=== PATIENT | female | born 1995 | race Caucasian/White ===

== ENCOUNTER 2020-08-12 07:25 | Inpatient (IN) ==
[2020-08-12] MEDS ORDERED: OXYTOCIN 30 UNITS/500 ML BAG IV PRN ×2 (08:47→08:49)
--- NOTE | 2020-08-12 09:12 | History & Physical Report ---
Date of Service August 12, 2020 Assessment & Plan (1) Encounter for supervision of normal in multigravida, antepartum: Admit to L&D. EFM/toco. Labs. COVID swab per protocol. Mckeon bulb inserted, insufflated to 35cc sterile water. Tolerated well. Start pitocin. OK for epidural when she desires. Admission and Anticipated Discharge Date Admission Date: August 12, 2020 History of Present Illness Chief Complaint: IOL Primary Care Provider: Rosy Yo 25yo @ 40 08/11, here for IOL for postdates. + movement, no reg ctx, no VB, no LOF. complicated by: GDM-non compliant with 2hr gtt *Begin monthly AC Us's @24wks Hypothyroid *Check TFTs Q4wks Chlamydia infection 1st trimester - NOREEN negative - Retest at 36 weeks--done 07/10 ak Moderate anemia - S/p Iron transfusion Obesity *growth US @ 32wks. IOL 08/12 Allergies Allergy/AdvReac Type Severity Reaction Status Date / Time Penicillins Allergy Hives Verified 08/12/20 07:46 Home Medications Medication Instructions Recorded Confirmed Type ondansetron 4 mg PO Q6H PRN #14 tab 01/06/19 08/12/20 Rx prenat.vits,ginger,[id number] 1 tab PO DAILY 05/21/20 08/12/20 History acetone (urine) test #50 ea 05/29/20 08/11/20 Rx blood sugar diagnostic #150 ea 05/29/20 08/11/20 Rx blood-glucose meter #1 ea 05/29/20 08/11/20 Rx lancets 33 gauge #150 ea 05/29/20 08/11/20 Rx levothyroxine 150 mcg tablet 150 mcg PO DAILY #90 tab 07/24/20 08/12/20 Rx levothyroxine 50 mcg capsule 100 mcg PO DAILY #90 cap 07/24/20 08/12/20 Rx loratadine 10 mg PO DAILY 07/31/20 08/12/20 History Patient History Medical History (Updated 08/12/20 @ 07:43 by Ene Cardenas, [place]) No significant past medical history Penicillin allergy Hives Surgical History (Updated 08/12/20 @ 07:44 by Ene Cardenas, [place]) H/O thyroidectomy 2019- due to Graves disease. S/P appendectomy S/P cholecystectomy S/P dilation and curettage S/P knee surgery S/P wisdom tooth extraction Family History Father Diabetes Hypertension Heart disease Cancer skin cancer Colorectal cancer Sister Breast cancer Social History (Updated 08/12/20 @ 07:46 by Ene Cardenas, RN) Smoking Status: Never smoker Hx Alcohol Use: No Preferred Language: Hungarian Beliefs That Will Affect Care: None marital status: Single marital status details: Mother Ramila Ferreira Current Living Situation: Family Current Living Situation Comment: lives with Father, and daughter, 1 dog , 1 cat, father changes litter. current occupational status: unemployed Feels Safe at Home: Yes Safety Concerns: Feels Safe At This Time Assistive Devices: None Review of Systems All systems reviewed & are unremarkable except as noted in HPI & below Physical Exam Physical Exam: T Cat 1 [place] rare SVE 2/70/-3 Constitutional: WD/WN, vitals as above Respiratory: normal respiratory effort, lungs clear to auscultation no respiratory distress Cardiovascular: Rate/Rhythm: regular rate and regular rhythm Gastrointestinal (Abdomen): Inspection/Auscultation: abdomen normal to inspection Percussion/Palpation: abdomen soft; abdomen nontender Gravid. No s/s chorio or abruption. Skin: no rashes, warm and dry Psychiatric: A+Ox3, euthymic affect Results & Data ([facility]) Vital Signs (Past 12 Hours) Vital Signs Temp Pulse Resp BP 08/12/20 07:43 37.2 C 85 18 121/65 08/12/20 07:37 37.2 C 85 18 121/65 Coding Level of Care Code None Diagnoses Encounter for supervision of normal in multigravida, antepartum Z34.80
[2020-08-12 09:50] LABS: Hematocrit (blood only) 29.4 % (37-47); Hemoglobin 8.9 g/dL (12.0-16.0); Mean Corpuscular Hemoglobin 25.5 pg (25-34); Mean Corpuscular Hgb Conc 30.3 g/dL (32-36); Mean Corpuscular Volume 84.2 fL (80-100); Mean Platelet Volume 10.4 fL (7.4-10.4); Platelet Count 189 K/uL (130-400); RDW Coefficient of Variation 17.3 % (11.5-14.5); Red Blood Count 3.49 M/uL (4.2-5.4); White Blood Count 9.66 K/uL (4.8-10.8)
[2020-08-12] MEDS: LACTATED RINGER'S 1,000 ML IV PRN ×3 (10:01→20:23)
[2020-08-12] MEDS ORDERED: fentaNYL citrate 100 MCG/2 ML VIAL ONE (11:54)
[2020-08-12] MEDS ORDERED: SODIUM CHLORIDE 0.9% INJ 10 ML VIAL ONE (11:54)
[2020-08-12] MEDS ORDERED: BUPIVACAINE 0.25% 30 ML VIAL ONE (11:54)
[2020-08-12] MEDS ORDERED: ePHEDrine sulfate 50 MG/ML AMP ONE (11:54)
[2020-08-12] MEDS ORDERED: fentaNYL 2MCG/ML ROPIVACAINE 1.25MG/ML 100 ML BAG EPI ONE (11:55)
--- NOTE | 2020-08-12 12:12 | Anesthesiology Consultation ---
Date of Service August 12, 2020 Assessment & Plan Chart Review Chart Review: Acceptable Risk for Surgery, Patient NOT seen in Pre Admission Testing and Acceptable Risk for Labor Epidural Consults Requested none ASA ASA3 Proposed Anesthesia Anesthesia Type: Labor Epidural and CSE History Height/Weight Height: 5 ft 2 in Weight: 118.841 kg Allergies Allergy/AdvReac Type Severity Reaction Status Date / Time Penicillins Allergy Hives Verified 08/12/20 07:46 Medications Home Medications Medication Instructions Recorded Confirmed Last Taken ondansetron 4 mg PO Q6H PRN #14 tab 01/06/19 08/12/20 Unknown prenat.vits,ginger,fcu-usrw-kutjc 1 tab PO DAILY 05/21/20 08/12/20 Unknown acetone (urine) test #50 ea 05/29/20 08/11/20 Unknown blood sugar diagnostic #150 ea 05/29/20 08/11/20 Unknown blood-glucose meter #1 ea 05/29/20 08/11/20 Unknown lancets 33 gauge #150 ea 05/29/20 08/11/20 Unknown levothyroxine 150 mcg tablet 150 mcg PO DAILY #90 tab 07/24/20 08/12/20 Unknown levothyroxine 50 mcg capsule 100 mcg PO DAILY #90 cap 07/24/20 08/12/20 Unknown loratadine 10 mg PO DAILY 07/31/20 08/12/20 Unknown Active Medications Generic Name Dose Route Start Last Admin Trade Name Freq PRN Reason Stop Dose Admin Lactated Ringer's 1,000 mls @ 125 mls/hr 08/12/20 08:47 08/12/20 11:43 Lr IV 08/14/20 08:46 999 mls/hr .Q8H PRN Infusion L&D Protocol Protocol Oxytocin 30 units in 500 mls @ 3 mls/hr 08/12/20 08:49 08/12/20 11:00 Pitocin IV 08/14/20 08:48 0.18 units/hr .Q24H PRN 3 mls/hr Labor Induction/Augmentation Titration Protocol 0.18 UNITS/HR Past Medical History Medical History No significant past medical history Penicillin allergy Hives Exercise / Class Metabolic Activity II 4-5 Yardwork/Stairs/Walk up hill Past Family History Family History Father Diabetes Hypertension Heart disease Cancer skin cancer Colorectal cancer Sister Breast cancer Past Surgical History Surgical History H/O thyroidectomy 2019- due to Graves disease. S/P appendectomy S/P cholecystectomy S/P dilation and curettage S/P knee surgery S/P wisdom tooth extraction Past Anesthesia History No Hx of Anesthesia Complications and No Family Hx of Anesthesia Complications History of PONV No Hx of PONV and No Hx of Motion Sickness Social History Smoking Status: Never smoker Hx Alcohol Use: No substance use type: does not use Physical Exam Vital Signs Last Vital Signs Temp 37.1 C 08/12/20 11:00 Pulse 75 08/12/20 11:06 Resp 18 08/12/20 11:00 BP 114/57 L 08/12/20 11:06 Testing Laboratory Results 08/12/20 09:19 08/12/20 09:17 POC Glucose 79
[2020-08-12] MEDS ORDERED: NALOXONE HCL 1 MG in SODIUM CHLORIDE 0.9% 1000ML 1,000 ML IV PRN (12:41)
[2020-08-12] MEDS ORDERED: NALOXONE HCL 0.4 MG/1 ML VIAL/CARP IV PRN (12:41)
[2020-08-12] MEDS ORDERED: fentaNYL 2MCG/ML ROPIVACAINE 1.25MG/ML 100 ML BAG EPI PRN (12:41)
[2020-08-12] MEDS ORDERED: ONDANSETRON INJ 2 MG/ML 2 ML VIAL IV PRN (12:41)
[2020-08-12] MEDS ORDERED: diphenhydrAMINE 50 MG/ML VIAL IV PRN (12:41)
[2020-08-12] MEDS ORDERED: PROMETHAZINE HCL 25 MG in SODIUM CHLORIDE 0.9% 50 ML IV PRN (12:41)
[2020-08-12] MEDS ORDERED: ePHEDrine sulfate 50 MG/ML AMP IV PRN (12:41)
[2020-08-12] MEDS ORDERED: ACETAMINOPHEN 500 MG TAB PO PRN (21:30)
[2020-08-12] MEDS ORDERED: ACETAMINOPHEN 500 MG TAB ONE (21:33)
--- NOTE | 2020-08-12 21:44 | Labor Progress Brief Note ---
Date of Service August 12, 2020 Subjective Feeling more pressure. Cervix is rim, with thick anterior lip. Attempted to retract anterior cervical lip over head with pushing, did not go easily. Will continue to labor. Small amount of vaginal bleeding during pushing, suspect related to cervical change. FHT cat 1 [place] Q 2 Assessment & Plan Admission and Anticipated Discharge Date Admission Date: August 12, 2020 Results & Data ([facility]) Vital Signs (Past 12 Hours) Vital Signs Temp Pulse Resp BP Pulse Ox 08/12/20 21:41 108 H 98 08/12/20 21:36 101 H 96 08/12/20 21:31 98 H 98 08/12/20 21:27 90 107/56 L 08/12/20 21:26 94 H 98 08/12/20 21:21 83 97 08/12/20 21:16 88 98 08/12/20 21:12 96 H 136/93 08/12/20 21:11 89 98 08/12/20 21:06 93 H 96 08/12/20 21:05 37.3 C 08/12/20 21:01 80 97 08/12/20 21:00 18 08/12/20 20:57 79 105/61 08/12/20 20:56 78 97 08/12/20 20:51 86 97 08/12/20 20:46 84 96 08/12/20 20:42 84 108/56 L 08/12/20 20:41 87 98 08/12/20 20:36 98 H 97 08/12/20 20:31 115 H 97 08/12/20 20:30 20 08/12/20 20:27 88 107/55 L 08/12/20 20:26 87 97 08/12/20 20:21 101 H 98 08/12/20 20:16 89 97 08/12/20 20:12 91 H 104/57 L 08/12/20 20:11 93 H 97 08/12/20 20:06 94 H 97 08/12/20 20:01 80 95 08/12/20 20:00 18 08/12/20 19:58 80 109/59 L 08/12/20 19:56 90 96 08/12/20 19:51 84 96 08/12/20 19:46 117 H 97 08/12/20 19:43 92 H 104/51 L 08/12/20 19:41 90 97 08/12/20 19:36 88 97 08/12/20 19:31 87 96 08/12/20 19:30 20 08/12/20 19:27 92 H 102/58 L 08/12/20 19:26 92 H 97 08/12/20 19:21 93 H 97 08/12/20 19:16 84 96 08/12/20 19:11 97 H 101/56 L 97 08/12/20 19:06 82 97 08/12/20 19:03 37.4 C 18 08/12/20 19:01 90 98 08/12/20 18:58 76 114/61 94 08/12/20 18:56 93 H 96 08/12/20 18:51 70 96 08/12/20 18:46 76 96 08/12/20 18:43 75 117/64 08/12/20 18:41 76 96 08/12/20 18:36 77 97 08/12/20 18:31 76 97 08/12/20 18:30 20 08/12/20 18:26 96 H 102/56 L 98 08/12/20 18:21 76 97 08/12/20 18:16 80 97 08/12/20 18:11 97 H 101/59 L 98 08/12/20 18:06 85 98 08/12/20 18:01 91 H 97 08/12/20 18:00 71 20 94 08/12/20 17:57 80 96 08/12/20 17:56 70 107/53 L 08/12/20 17:55 72 94 08/12/20 17:51 78 96 08/12/20 17:46 74 96 08/12/20 17:42 77 105/59 L 08/12/20 17:41 75 96 08/12/20 17:36 75 96 08/12/20 17:31 81 96 08/12/20 17:30 20 08/12/20 17:26 73 101/59 L 96 08/12/20 17:21 78 96 08/12/20 17:16 75 96 08/12/20 17:13 73 105/55 L 08/12/20 17:11 70 96 08/12/20 17:07 74 97 08/12/20 17:02 72 96 08/12/20 17:00 37.3 C 18 08/12/20 16:57 68 103/59 L 08/12/20 16:56 76 97 08/12/20 16:51 84 96 08/12/20 16:46 73 97 08/12/20 16:42 75 97 08/12/20 16:41 76 108/58 L 08/12/20 16:36 77 96 08/12/20 16:32 73 97 08/12/20 16:30 20 08/12/20 16:27 74 108/58 L 96 08/12/20 16:21 71 97 08/12/20 16:16 75 98 08/12/20 16:12 77 117/59 L 08/12/20 16:11 81 97 08/12/20 16:07 82 96 08/12/20 16:02 69 96 08/12/20 16:00 20 08/12/20 15:59 72 94 08/12/20 15:58 76 112/61 08/12/20 15:56 71 96 08/12/20 15:51 70 94 08/12/20 15:47 71 95 08/12/20 15:42 81 96 08/12/20 15:41 73 105/53 L 08/12/20 15:37 70 97 08/12/20 15:34 68 94 08/12/20 15:32 69 96 08/12/20 15:30 18 08/12/20 15:27 80 96 08/12/20 15:26 82 107/59 L 08/12/20 15:22 73 96 08/12/20 15:17 87 98 08/12/20 15:12 86 124/78 99 08/12/20 15:07 80 99 08/12/20 15:02 66 96 08/12/20 15:00 37.2 C 18 08/12/20 14:57 71 107/59 L 97 08/12/20 14:53 64 94 08/12/20 14:52 89 97 08/12/20 14:47 72 97 08/12/20 14:42 80 118/57 L 96 08/12/20 14:37 81 97 08/12/20 14:32 82 98 08/12/20 14:30 20 08/12/20 14:27 74 116/61 96 08/12/20 14:22 91 H 99 08/12/20 14:17 72 97 08/12/20 14:15 18 08/12/20 14:12 65 117/62 97 08/12/20 14:07 74 100 08/12/20 14:01 74 98 08/12/20 14:00 18 08/12/20 13:57 75 102/51 L 96 08/12/20 13:52 84 96 08/12/20 13:47 72 97 08/12/20 13:45 18 08/12/20 13:41 82 98 08/12/20 13:39 81 102/56 L 08/12/20 13:37 88 98 08/12/20 13:34 75 111/57 L 08/12/20 13:32 75 97 08/12/20 13:30 20 08/12/20 13:27 85 103/56 L 97 08/12/20 13:24 83 104/59 L 08/12/20 13:22 83 96 08/12/20 13:19 75 105/59 L 08/12/20 13:17 89 97 08/12/20 13:15 18 08/12/20 13:13 92 H 141/64 H 08/12/20 13:12 82 97 08/12/20 13:09 80 105/59 L 08/12/20 13:07 76 98 08/12/20 13:03 78 113/57 L 08/12/20 13:02 78 97 08/12/20 13:00 36.8 C 18 08/12/20 12:59 78 98/54 L 08/12/20 12:57 79 98 08/12/20 12:52 79 111/58 L 98 08/12/20 12:50 83 99/61 L 08/12/20 12:48 72 99/58 L 08/12/20 12:47 76 98 08/12/20 12:46 80 109/63 08/12/20 12:45 18 08/12/20 12:44 78 103/63 08/12/20 12:42 75 103/58 L 98 08/12/20 12:40 74 102/55 L 08/12/20 12:38 74 112/55 L 08/12/20 12:37 91 H 97 08/12/20 12:32 75 99 08/12/20 12:27 79 100 08/12/20 12:22 78 100 08/12/20 12:17 79 100 08/12/20 12:12 75 125/83 100 08/12/20 11:06 75 114/57 L 08/12/20 11:00 37.1 C 18 08/12/20 10:03 89 107/70 Coding Level of Care Code None
[2020-08-12] MEDS ORDERED: NURSING L&D Epidural Breakthrough Pain Update ONE (23:28)
--- NOTE | 2020-08-13 01:09 | Delivery Summary ---
Vaginal Delivery Summary Date of Service August 13, 2020 Vaginal Delivery Summary and 2nd Degree LAC Vaginal Delivery Summary: Pre-delivery diagnoses: 25yo @ 41 0/7, IOL for postdates. GDM-non compliant, hypothyroidism, chlamydia during , anemia, obesity. Post-delivery diagnoses: same Procedure: spontaneous vaginal delivery Surgeon: Jocelyn Graham DO Complications: none Findings: Viable female . Apgars: 8/9 . Weight pending, please see nursery records Estimated blood loss: 400ml Description of delivery: The patient progressed to complete with epidural anesthesia. She then began to push. She spontaneously vaginally delivered a v iable from the cephalic presentation. The head delivered in ALEXIS position. Nuchal x 1, reduced. The anterior shoulder delivered, followed by the posterior shoulder, followed by the body. The baby was placed on mother's abdomen and a spontaneous cry was heard. Delayed cord clamping was employed, and the cord was doubly clamped and cut. A segment was retained for cord gases. Cord blood was obtained. The placenta was delivered spontaneously intact with a 3-vessel cord. The uterus and vagina were swept of clots and debris. IV pitocin was given. The uterus became firm. The cervix, vagina, and perineum were inspected and a 2nd degree perineal laceration was noted and repaired in standard fashion with 3-0 vicryl. Excellent hemostasis was observed. The mother and baby are recovering in stable and good condition in the room. Sponge, needle and instrument counts were correct x 2. Jocelyn Graham DO [facility] Vaginal Delivery Charge Vaginal Delivery Codes: 55897 global code for the antepartum, delivery, and post- Delivery Type Details: and 2nd Degree LAC
[2020-08-13] MEDS ORDERED: ACETAMINOPHEN 325 MG TAB PO PRN (01:42)
[2020-08-13] MEDS ORDERED: oxyCODONE/ACETAMINOPHEN 5mg/325mg TAB PO PRN (01:42)
[2020-08-13] MEDS ORDERED: BENZOCAINE 20% AER SPR 82.5 GM CAN EXT PRN (01:42)
[2020-08-13] MEDS ORDERED: OXYTOCIN 30 UNITS/500 ML BAG IV PRN (01:42)
[2020-08-13] MEDS ORDERED: SUPERCREAM 0.870% 15 GM JAR EXT PRN (01:42)
[2020-08-13] MEDS ORDERED: HYDROCORTISONE ACETATE 25 MG SUPP PR PRN (01:42)
[2020-08-13] MEDS ORDERED: bisacodyL 10 MG SUPP PR PRN (01:42)
[2020-08-13] MEDS ORDERED: DIPHTHERIA/TETANUS/PERTUSSIS 0.5 ML SYR/VIAL IM ONE (02:45)
[2020-08-13] MEDS: IBUPROFEN 600 MG TAB PO PRN ×4 (03:18→23:59)
[2020-08-13] MEDS: LEVOTHYROXINE SODIUM 50 MCG TABLET PO SCH (06:00)
[2020-08-13] MEDS: DOCUSATE SODIUM 100 MG CAP PO SCH ×2 (08:09→20:54)
[2020-08-13] MEDS: PRENATAL VITAMIN 1 TAB PO SCH (08:09)
--- NOTE | 2020-08-13 08:24 | Anesthesia Procedure Note ---
Date of Service August 13, 2020 Anesthesia Post Epidural Note Vital Signs Vital Signs: Temp Pulse Resp BP Pulse Ox 36.9 C 78 18 115/72 94 08/13/20 08:00 08/13/20 08:00 08/13/20 08:00 08/13/20 08:00 08/13/20 08:00 Pain Intensity Lower Abdomen: Pain Intensity: 7 Notes Mental Status: alert / awake / arousable and participated in evaluation Nausea / Vomiting: adequately controlled Pain: adequately controlled Airway Patency, RR, SpO2: stable & adequate BP & HR: stable & adequate Hydration State: stable & adequate Neuraxial Anesthesia: was administered and sensory block resolved Anesthetic Complications: no major complications apparent and Pt Satisfied with anesthetic care Epidural: Removed without complications and With tip intact Notes: Epidural site clean, dry and intact. No signs of edema, erythema or bruising at insertion site. Pt instructed to request anesthesia if she has residual lower extremity numbness or if she develops lower extremity pain or weakness, back pain or headache.
[2020-08-13] MEDS ORDERED: LORATADINE 10 MG TAB PO SCH (09:00)
[2020-08-13 23:14] VITALS: TEMP 98.1; O2SAT 98
--- NOTE | 2020-08-14 05:56 | Obstetrical Progress Note ---
Date of Service <Aguilar Sands MD - Last Filed: 08/14/20 07:24> August 14, 2020 Assessment & Plan <Aguilar Sands MD - Last Filed: 08/14/20 07:24> (1) state: - PNL: Rh pos, RI, GBS neg, COVID neg - Feels well today. Eating well, voiding well, ambulating well - Pain well controlled with ibuprofen 600mg Q4H PRN - Routine care -- OOB, ambulation, diet progression as tolerated - After discharge will have 6 week follow-up with Dr. Graham Subjective <Aguilar Sands MD - Last Filed: 08/14/20 07:24> Radha is a 25 y/o female who is PPD #1 following at 40 6/7 weeks. She reports feeling well overall this morning. Moderate abdominal cramping and 6/10 pain well managed on analgesics. Voiding well. Tolerating meals overnight without difficulty. Patient has been able to ambulate some. Is passing gas, no bowel movement. Has persistent lochia with some improvement this morning. Currently bottle feeding. Review of Systems Denies fever or chills. Denies shortness of breath or cough. Denies chest pain. Denies breast pain. Denies dysuria. Denies leg pain or leg swelling. Denies headache or changes in vision. Physical Exam <Aguilar Sands MD - Last Filed: 08/14/20 07:24> General: Alert, oriented. No acute distress. Cardiac: Regular rate and rhythm. No murmurs. Respiratory: Clear to auscultation bilaterally a/p, no wheezes/rales/rhonchi. No increased work of breathing. Symmetrical chest rise. No respiratory distress. Abdomen: Soft, nontender, nondistended. Bowel sounds present. Uterus: Uterine fundus firm, palpable ~1 cm below umbilicus. Lower Extremities: No lower extremity edema or swelling. No deep calf pain. Tushar's negative bilaterally. Results & Data ([facility]) <Aguilar Sands MD - Last Filed: 08/14/20 07:24> Vital Signs (Past 12 Hours) Vital Signs Temp Pulse Resp BP Pulse Ox 08/13/20 23:50 18 08/13/20 23:13 36.7 C 60 16 108/73 98 08/13/20 19:55 36.3 C L 75 16 104/69 96 <Amy Connell MD, FACOG - Last Filed: 08/14/20 07:37> Co-Signing Physician Notes Resident Physician Supervision Note: I interviewed and examined the patient. Discussed with Dr. Escamilla and agree with findings and plan as documented in the note. Any exceptions or clarifications are listed here: Doing well. Plan d/c. h/h noted but patient is asymptomatic will take iron. Call with concerns. d/c instructions reviewed. Documented By: Amy Connell MD, FACOG Resident Activity Tracking <Aguilar Sands MD - Last Filed: 08/14/20 07:24> Resident Involvement: Resident Care Provided Care Provided: OB Delivery
[2020-08-14] MEDS: LEVOTHYROXINE SODIUM 50 MCG TABLET PO SCH (06:24)
[2020-08-14 06:27] LABS: Hematocrit (blood only) 24.2 % (37-47); Hemoglobin 7.4 g/dL (12.0-16.0)
[2020-08-14 08:15] VITALS: BP 101/71; PULSE 76
[2020-08-14] MEDS: PRENATAL VITAMIN 1 TAB PO SCH (08:19)
[2020-08-14] MEDS: DOCUSATE SODIUM 100 MG CAP PO SCH (08:19)
[2020-08-14] MEDS ORDERED: bisacodyL 5 MG TABEC PO SCH (20:00)
== END 2020-08-14 10:05 | disposition home or self-care (01) | DRG 807 ==
LOC: 4S1 07:25 → 4S2 08-13 04:00

== ENCOUNTER 2023-06-21 12:04 | Inpatient (IN) ==
[2023-06-21] MEDS ORDERED: LIDOCAINE 1% LOCAL 20 ML VIAL INFIL PRN (12:33)
[2023-06-21] MEDS ORDERED: OXYTOCIN 30 UNITS/NSS 30 UNITS/500 ML BAG IV PRN (12:33)
[2023-06-21] MEDS ORDERED: METHYLERGONOVINE MALEATE 0.2 MG/ML AMP IM PRN (12:33)
--- NOTE | 2023-06-21 13:26 | History & Physical Report ---
Date of Service June 21, 2023 Assessment & Plan (1) GBS (group B Streptococcus carrier), +RV culture, currently : (2) Encounter for induction of labor: Plan 28 y/o female a 40w 4d - Fetus: Category 1 tracing - Induction of labor- continue to monitor and augment as needed - GBS positive, will treat intrapartum Admission and Anticipated Discharge Date Admission Date: June 21, 2023 History of Present Illness Primary Care Provider: Rosy Yo 28 y/o with IUP at 40w 4d weeks here for induction of . Complications with this include hypothyroidism, obesity and anemia in . Has been attending OB appointments regularly. Currently taking no medications. GBS +, Rubella immune, BTG: O+ Contractions: none. Fluid or Blood loss: none Movement: active FHR baseline 140, moderate variability, accelerations present, decelerations absent Lab Results OB Labs: Blood Type O Positive 11/03/22 Antibody Screen NEGATIVE 11/03/22 Hemoglobin 8.5 g/dl (12.0-16.0) L 04/08/23 Hematocrit 28.8 % (37.0-47.0) L 04/08/23 Mean Corpuscular Volume 81.7 fL (80.0-100.0) 11/03/22 Platelet Count 261 K/uL (130-400) 11/03/22 Varicella-Zoster IgG Antibody 428.20 index 11/03/22 Rubella IgG Antibody Immune (Immune) 11/03/22 Rapid Plasma Reagin Nonreactive (Nonreactive) 11/03/22 Hepatitis B Surface Antigen. NON-REACTIVE (NON-REACTIVE) 11/03/22 Hepatitis C Antibody (EIA) NON-REACTIVE (NON-REACTIVE) 11/03/22 HIV (1&2) Ag and Ab Confirmation NON-REACTIVE (NON-REACTIVE) 11/03/22 OB Optional Labs: Chlamydia trachomatis RNA Not Detected (NotDetected) 11/03/22 Neisseria gonorrhoeae RNA Not Detected (NotDetected) 11/03/22 Thyroid Stimulating Hormone (TSH) 3.68 uIU/mL (0.30-4.50) 04/13/23 Labs Reviewed: Initial OB Labs (01/18/20) Blood Type & RH O+ Antibody Screen negative HCT/HGB 31.4/9.7 Platelets 216 Pap Test negative (11/09/19) Chlamydia negative Gonorrhea negative Rubella immune RPR non reactive Urine Culture/Screen HBsAg negative HIV nonreactive MCV 81.3 TSH 58.60 Hep C negative Allergies Allergy/AdvReac Type Severity Reaction Status Date / Time Penicillins Allergy Hives Verified 06/20/23 10:21 Home Medications Medication Instructions Recorded Confirmed Type cetirizine [Zyrtec] PO 05/27/23 06/20/23 History levothyroxine 175 mcg tablet 150 mcg PO DAILY 06/21/23 06/21/23 History Patient History Medical History (Updated 06/21/23 @ 13:32 by Vinicio Jeong MD) Asthma Encounter for supervision of normal in multigravida, antepartum Penicillin allergy Hives No significant past medical history Surgical History H/O thyroidectomy 2019- due to Graves disease. S/P dilation and curettage S/P knee surgery x3 S/P wisdom tooth extraction S/P cholecystectomy S/P appendectomy Family History Father Diabetes Hypertension Heart disease Cancer Colorectal cancer Sister Breast cancer Social History (Updated 10/27/22 @ 14:14 by Talya Laureano RN) Smoking Status: Never smoker Do You Dip or Chew Tobacco: No; Hx Alcohol Use: No Hx Substance Use: No Preferred Language: Slovenian Communication Ability: Effective Manager Quality Systems Required: No Beliefs That Will Affect Care: None marital status: marital status details: jb kingsley [phone] Current Living Situation: Spouse Current Living Situation Comment: lives with , and kids, 2 dog , 2 cat, father changes litter. current occupational status: unemployed Other Information That Helps Us Care for You: No Feels Safe at Home: Yes Safety Concerns: Feels Safe At This Time Assistive Devices: None Review of Systems All systems reviewed & are unremarkable except as noted in HPI & below Physical Exam Physical Exam: General: patient resting comfortably, NAD, non-toxic in appearance, AA&O x 4, answers questions appropriately. Skin: warm, dry, intact HEENT: NC/AT, anicteric sclera, conjunctiva without injection, moist mucus membranes Heart: +S1/S2, regular, no m/r/g Lungs: equal air entry bilaterally, no rales/rhonchi/wheezes Abd: +BS, soft, NT/ND, gravid uterus Cervical: uterus mod. anterior Ext: warm, no clubbing/cyanosis or edema Neuro: nonfocal, patient AA&O x 4, speech intact, no facial droop, moving all extremities on command. Results & Data Vital Signs (Past 12 Hours) Vital Signs Temp Pulse Resp BP 06/21/23 12:32 37.2 C 20 06/21/23 12:21 117 H 104/63 Supervising Physician Co-Signing Physician Notes Patient seen with resident and agree with the above findings and plan. Resident Activity Tracking Resident Involvement: Resident Care Provided Care Provided: OB Delivery
[2023-06-21 13:30] LABS: Hematocrit (blood only) 27.7 % (37.0-47.0); Mean Corpuscular Hemoglobin 21.2 pg (25.0-34.0); Mean Corpuscular Hgb Conc 28.9 g/dL (32.0-36.0); Mean Corpuscular Volume 73.3 fL (80.0-100.0); Mean Platelet Volume 11.3 fL (9.4-12.4); Platelet Count 229 K/uL (130-400); RDW Standard Deviation 51.3 fL (36.4-46.3); Red Blood Count 3.78 M/uL (4.20-5.40); White Blood Count 11.18 K/ul (4.8-10.8)
[2023-06-21] MEDS: LACTATED RINGER'S 1,000 ML IV PRN (13:43)
[2023-06-21] MEDS: ceFAZolin 2000MG 2,000 MG/15 ML SYR IV STA (13:45)
[2023-06-21] MEDS: OXYTOCIN 30 UNITS/NSS 30 UNITS/500 ML BAG IV PRN (13:50)
[2023-06-21] MEDS: BUTORPHANOL TARTRATE 2 MG/ML VIAL IV ONE (18:02)
[2023-06-21] MEDS ORDERED: SODIUM CHLORIDE 0.9% 250 ML IV PRN (19:29)
[2023-06-21] MEDS: fentANYL 2 MCG/ML BUPIVacaine 0.125%-NSS 100ML BAG ONE (21:11)
[2023-06-21] MEDS ORDERED: ROPIVACAINE 0.5% PF 5 MG/ML 20 ML VIAL EPI PRN (21:18)
[2023-06-21] MEDS ORDERED: fentANYL 2 MCG/ML BUPIVacaine 0.125%-NSS 100ML BAG EPI PRN (21:18)
[2023-06-21] MEDS ORDERED: SODIUM CHLORIDE 0.9% PF INJ 10 ML VIAL EPI PRN (21:18)
[2023-06-21] MEDS ORDERED: NALBUPHINE HCL 5 MG in SYRINGE 0 ML IV PRN (21:18)
[2023-06-21] MEDS ORDERED: NALOXONE HCL 0.4 MG/1 ML VIAL/CARP IV PRN (21:18)
[2023-06-21] MEDS ORDERED: diphenhydrAMINE 50 MG/ML VIAL IV PRN (21:18)
[2023-06-21] MEDS ORDERED: BUPIVACAINE 0.25% PF 30 ML VIAL EPI PRN (21:18)
[2023-06-21] MEDS ORDERED: fentaNYL citrate PF 100 MCG/2 ML VIAL EPI PRN (21:18)
[2023-06-21] MEDS ORDERED: ONDANSETRON INJ 2 MG/ML 2 ML VIAL IV PRN (21:18)
[2023-06-21] MEDS ORDERED: LIDOCAINE 2% MPF LOCAL 5 ML VIAL EPI PRN (21:18)
[2023-06-21] MEDS ORDERED: NALOXONE HCL 1 MG in SODIUM CHLORIDE 0.9% 1,000 ML IV PRN (21:18)
[2023-06-21] MEDS ORDERED: ePHEDrine sulfate 50 MG/ML AMP IV PRN (21:18)
--- NOTE | 2023-06-21 21:18 | Anesthesiology Consultation ---
Date of Service June 21, 2023 Assessment & Plan Chart Review Chart Review: Patient NOT seen in Pre Admission Testing and Acceptable Risk for Labor Epidural Consults Requested none ASA ASA2 Proposed Anesthesia Anesthesia Type: Labor Epidural Risk / Benefits Reviewed With: PT / POA / Parent / Guardian, Accepts Plan and Informed Consent Obtained History Height/Weight Height: 5 ft 4 in Weight: 134.717 kg Allergies Allergy/AdvReac Type Severity Reaction Status Date / Time Penicillins Allergy Hives Verified 06/20/23 10:21 Medications Home Medications Medication Instructions Recorded Confirmed Last Taken cetirizine [Zyrtec] PO 05/27/23 06/20/23 Unknown levothyroxine 175 mcg tablet 150 mcg PO DAILY 06/21/23 06/21/23 06/20/23 Active Medications Generic Name Dose Route Start Last Admin Trade Name Freq PRN Reason Stop Dose Admin Oxytocin 30 units in 500 mls @ 10 mls/hr 06/21/23 12:33 06/21/23 19:30 Pitocin 30 Units/Nss IV 06/23/23 12:32 0.6 units/hr .Q24H PRN 10 mls/hr Labor Induction/Augmentation Titration Protocol 0.6 UNITS/HR Lactated Ringer's 1,000 mls @ 125 mls/hr 06/21/23 12:33 06/21/23 20:52 Lr IV 06/23/23 12:32 125 mls/hr .Q8H PRN Administration L&D Protocol Protocol Past Medical History Medical History (Updated 06/21/23 @ 13:32 by Vinicio Jeong MD) Asthma Encounter for supervision of normal in multigravida, antepartum Penicillin allergy Hives No significant past medical history Exercise / Class Metabolic Activity II 4-5 Yardwork/Stairs/Walk up hill Past Family History Family History Father Diabetes Hypertension Heart disease Cancer Colorectal cancer Sister Breast cancer Past Surgical History Surgical History H/O thyroidectomy 2019- due to Graves disease. S/P dilation and curettage S/P knee surgery x3 S/P wisdom tooth extraction S/P cholecystectomy S/P appendectomy Past Anesthesia History No Hx of Anesthesia Complications and No Family Hx of Anesthesia Complications History of PONV No Hx of PONV and No Hx of Motion Sickness Social History Smoking Status: Never smoker Do You Dip or Chew Tobacco: No Hx Alcohol Use: No Hx Substance Use: No substance use type: does not use Physical Exam Vital Signs Last Vital Signs Temp 37.1 C 06/21/23 19:01 Pulse 104 H 06/21/23 21:15 Resp 16 06/21/23 19:01 BP 115/52 L 06/21/23 21:15 Pulse Ox 99 06/21/23 21:14 ENMT Mouth: no dentition abnormality Thyromental Distance: > or= 3.5 Finger Breadths Mallampati Class: II Neck normal visual inspection Respiratory normal respiratory effort Auscultation: lungs clear to auscultation bilaterally Cardiovascular Rate/Rhythm: regular rate and regular rhythm Psychiatric Orientation: alert Testing Laboratory Results 06/21/23 12:52 Blood Type O Positive 06/21/23 12:52 Antibody Screen NEGATIVE 06/21/23 12:52
[2023-06-21] MEDS: SODIUM CHLORIDE 0.9% PF INJ 10 ML VIAL ONE (21:27)
[2023-06-21] MEDS: LIDOCAINE 2%/EPINEPHRINE 1:200,000 20 ML PF ONE (21:28)
[2023-06-21] MEDS: fentaNYL citrate PF 100 MCG/2 ML VIAL ONE (21:28)
[2023-06-21] MEDS: BUPIVACAINE 0.25% PF 30 ML VIAL ONE (21:28)
[2023-06-21] MEDS: BUPIVACAINE 0.25% PF 30 ML VIAL EPI STA (21:39)
[2023-06-21] MEDS: fentaNYL citrate PF 100 MCG/2 ML VIAL EPI STA (21:39)
[2023-06-21] MEDS: LIDOCAINE 2%/EPINEPHRINE 1:200,000 20 ML PF EPI STA (21:40)
[2023-06-21] MEDS: SODIUM CHLORIDE 0.9% PF INJ 10 ML VIAL EPI STA (21:40)
--- NOTE | 2023-06-21 21:42 | Labor Progress Brief Note ---
Date of Service June 21, 2023 Subjective Reason For Note: Routine Evaluation Assessment & Plan (1) GBS (group B Streptococcus carrier), +RV culture, currently : (2) Encounter for induction of labor: Plan 28 y/o female a 40w 4d - Fetus: Category 1 tracing - Induction of labor-oxytocin per regular protocol. Artificial rupture of membranes for meconium. FSE placed. Epidural in place - GBS positive, will treat intrapartum Admission and Anticipated Discharge Date Admission Date: June 21, 2023 Physical Exam Genitourinary: normal external appearance Manual OB Exam: + cervical dilation 6 cm, + cervical effacement 60%, + station -2 and + amniotic fluid meconium OB Exam Monitor Tracing: + external FHT monitor used, + external uterine monitor used, + category I and + normal FHT variability Results & Data Vital Signs (Past 12 Hours) Vital Signs Temp Pulse Resp BP Pulse Ox 06/21/23 21:39 99 06/21/23 21:39 101 H 06/21/23 21:34 98 06/21/23 21:34 105 H 06/21/23 21:34 111/58 L 06/21/23 21:29 99 06/21/23 21:29 101 H 06/21/23 21:24 98 06/21/23 21:24 98 H 06/21/23 21:23 99 H 06/21/23 21:23 99/51 L 06/21/23 21:21 100 H 06/21/23 21:21 93/54 L 06/21/23 21:19 99 06/21/23 21:19 106 H 06/21/23 21:19 110 H 06/21/23 21:19 99/56 L 06/21/23 21:17 100 H 06/21/23 21:17 105/53 L 06/21/23 21:15 104 H 06/21/23 21:15 115/52 L 06/21/23 21:14 99 06/21/23 21:14 98 H 06/21/23 21:13 98 H 06/21/23 21:13 103/57 L 06/21/23 21:11 93 H 06/21/23 21:11 106/55 L 06/21/23 21:09 98 06/21/23 21:09 107 H 06/21/23 21:04 99 06/21/23 21:04 89 06/21/23 21:02 89 L 06/21/23 21:02 85 06/21/23 20:59 96 06/21/23 20:59 99 H 06/21/23 20:59 90 06/21/23 20:59 114/63 06/21/23 20:54 98 06/21/23 20:54 92 H 06/21/23 20:49 99 06/21/23 20:49 48 L 06/21/23 20:44 99 06/21/23 20:44 80 06/21/23 20:39 99 06/21/23 20:39 49 L 06/21/23 20:34 98 06/21/23 20:34 48 L 06/21/23 20:29 99 06/21/23 20:29 52 L 06/21/23 20:24 99 06/21/23 20:24 46 L 06/21/23 20:22 49 L 06/21/23 20:22 118/68 06/21/23 20:19 100 06/21/23 20:19 89 06/21/23 20:14 98 06/21/23 20:14 101 H 06/21/23 20:09 99 06/21/23 20:09 103 H 06/21/23 20:01 98 06/21/23 20:01 61 06/21/23 19:56 98 06/21/23 19:56 94 H 06/21/23 19:53 48 L 06/21/23 19:53 120/57 L 06/21/23 19:51 99 06/21/23 19:51 46 L 06/21/23 19:46 99 06/21/23 19:46 48 L 06/21/23 19:41 97 06/21/23 19:41 49 L 06/21/23 19:38 46 L 06/21/23 19:38 97/50 L 06/21/23 19:36 98 06/21/23 19:36 47 L 06/21/23 19:31 98 06/21/23 19:31 46 L 06/21/23 19:26 98 06/21/23 19:26 83 06/21/23 19:23 87 06/21/23 19:23 106/64 06/21/23 19:21 98 06/21/23 19:21 48 L 06/21/23 19:16 98 06/21/23 19:16 87 06/21/23 19:11 98 06/21/23 19:11 97 H 06/21/23 19:09 105 H 06/21/23 19:09 124/71 06/21/23 19:06 97 06/21/23 19:06 96 H 06/21/23 19:01 97 06/21/23 19:01 92 H 06/21/23 19:01 16 06/21/23 19:01 37.1 C 16 06/21/23 18:59 93 H 06/21/23 18:59 114/65 06/21/23 18:56 98 06/21/23 18:56 96 H 06/21/23 18:53 49 L 06/21/23 18:53 111/56 L 06/21/23 18:51 97 06/21/23 18:51 50 L 06/21/23 18:46 98 06/21/23 18:46 85 06/21/23 18:45 18 06/21/23 18:45 18 06/21/23 18:41 97 06/21/23 18:41 49 L 06/21/23 18:38 46 L 06/21/23 18:38 117/56 L 06/21/23 18:36 97 06/21/23 18:36 48 L 06/21/23 18:31 97 06/21/23 18:31 47 L 06/21/23 18:30 20 06/21/23 18:30 20 06/21/23 18:26 97 06/21/23 18:26 49 L 06/21/23 18:22 48 L 06/21/23 18:22 111/59 L 06/21/23 18:08 50 L 06/21/23 18:08 121/59 L 06/21/23 18:00 20 06/21/23 18:00 20 06/21/23 17:31 90 06/21/23 17:31 128/59 L 06/21/23 17:30 20 06/21/23 17:30 20 06/21/23 17:00 18 06/21/23 17:00 18 06/21/23 16:38 90 06/21/23 16:38 115/70 06/21/23 16:30 18 06/21/23 16:30 18 06/21/23 16:00 20 06/21/23 16:00 37.0 C 20 06/21/23 15:30 20 06/21/23 15:30 20 06/21/23 15:07 104 H 06/21/23 15:07 101/58 L 06/21/23 14:00 20 06/21/23 14:00 20 06/21/23 13:44 105 H 06/21/23 13:44 125/78 06/21/23 12:32 37.2 C 20 06/21/23 12:21 117 H 104/63 Coding Level of Care Code None Diagnoses GBS (group B Streptococcus carrier), +RV culture, currently O99.820 Encounter for induction of labor Z34.90
[2023-06-21] MEDS: ceFAZolin 1000MG 1,000 MG/7.5 ML SYR IV PRN (21:55)
[2023-06-22] MEDS: ePHEDrine sulfate 50 MG/ML AMP ONE (03:05)
[2023-06-22] MEDS: miSOPROStoL 200 MCG TAB PR ONE (03:14)
[2023-06-22] MEDS ORDERED: DIPHTHER/TETAN/PERTUS Vaccine (Tdap, Adol/Adult) 0.5mL IM ONE (03:24)
[2023-06-22] MEDS ORDERED: HYDROCORTISONE ACETATE 25 MG SUPP PR PRN (03:24)
[2023-06-22] MEDS ORDERED: OXYTOCIN 30 UNITS/NSS 30 UNITS/500 ML BAG IV PRN (03:24)
[2023-06-22] MEDS ORDERED: ACETAMINOPHEN 325 MG TAB PO PRN (03:24)
--- NOTE | 2023-06-22 03:27 | Delivery Summary ---
Vaginal Delivery Summary Date of Service June 22, 2023 Vaginal Delivery Summary and 1st Degree LAC Progressed to 10 cm dilated 100% effaced +2 station and pushed over a intact perineum with epidural anesthesia and delivered a viable with weight and Apgars pending. Difficulty and no nuchal cord noted. Body and shoulders quickly followed. was noted to be vigorous upon delivery and 1 minute delayed cord clamping was initiated. Cord was then double clamped and cut. Cord blood obtained. Attention turned to delivery placenta was delivered intact three-vessel cord. There is noted to be a first degree perineal laceration which was pared with 3-0 Vicryl and continuous running stitch. 800 mcg of Cytotec placed per rectum. Needle sponge and instrument counts were correct at the completion of the case. Estimated blood loss of 200-300 mL and formal calculated blood loss of 207mL noted. No complications [facility] Vaginal Delivery Charge Delivery Type Details: and 1st Degree LAC
--- NOTE | 2023-06-22 05:23 | Anesthesia Procedure Note ---
Date of Service June 22, 2023 Anesthesia Post Epidural Note Vital Signs Vital Signs: Temp Pulse Resp BP Pulse Ox O2 Del Method 36.6 C 90 16 131/58 L 85 L Room Air 06/22/23 01:34 06/22/23 05:08 06/22/23 04:55 06/22/23 05:08 06/22/23 04:09 06/22/23 04:55 Notes Mental Status: alert / awake / arousable and participated in evaluation Nausea / Vomiting: adequately controlled Pain: adequately controlled Airway Patency, RR, SpO2: stable & adequate BP & HR: stable & adequate Hydration State: stable & adequate Neuraxial Anesthesia: was administered and sensory block is resolving Anesthetic Complications: no major complications apparent Epidural: Removed without complications and With tip intact
[2023-06-22] MEDS: LEVOTHYROXINE SODIUM 150 MCG TABLET PO SCH (08:11)
[2023-06-22] MEDS: IBUPROFEN 600 MG TAB PO PRN (08:30)
[2023-06-22] MEDS: FERROUS SULFATE 325 MG TAB PO SCH (08:56)
[2023-06-22] MEDS: DOCUSATE SODIUM 100 MG CAP PO SCH (08:56)
[2023-06-22] MEDS: PRENATAL VITAMIN 1 TAB PO SCH (08:56)
[2023-06-22] MEDS: BENZOCAINE 20% SPRY 85 APPLN/85 GM CAN EXT PRN (11:15)
--- NOTE | 2023-06-23 05:37 | Obstetrical Progress Note ---
Date of Service June 23, 2023 Assessment & Plan (1) Encounter for care after hospital delivery: Plan 28 y/o post- day 1 s/p Continue post care Feels well today. Vital signs stable Encourage ambulation and Hgb stable, rubella immune Pain well controlled with ibuprofen Admission and Anticipated Discharge Date Admission Date: June 21, 2023 Supervising Physician Co-Signing Physician Notes Resident Physician Supervision Note: I was present with Dr. Nath during the history and exam. I discussed the case with the resident and agree with the findings and plan as documented in the note. Any exceptions or clarifications are listed here: stable doing well. will dc home, instructions reviewed. f/u 6wk pp check. rhpos, ri, bottle feeding. Documented By: Viky Clark MD, FACOG Subjective 28 y/o post- day 1 s/p Ambulation: ambulating normally Voiding: no voiding problems Passing Gas:: Yes Diet Tolerance: regular diet Lochia:: Small Feeding Type::breast feeding Current Pain Level: Minimal Resting comfortably this AM in NAD. Denies ROACH, CP, SOB, N/V/D, LE pain/swelling. Review of Systems Review of Systems: All systems reviewed & are unremarkable except as noted in HPI & below Physical Exam Physical Exam: General: patient resting comfortably, NAD, non-toxic in appearance, AA&O x 4, answers questions appropriately. Skin: warm, dry, intact HEENT: NC/AT, anicteric sclera, conjunctiva without injection, moist mucus membranes. Heart: +S1/S2, regular, no m/r/g Lungs: equal air entry bilaterally, no rales/rhonchi/wheezes Abd: +BS, soft, NT/ND, uterine fundus firm at umbilicus Ext: warm, no clubbing/cyanosis or edema, Tushar's neg. Neuro: nonfocal, patient AA&O x 4, speech intact, no facial droop, moving all extremities on command. Results & Data Vital Signs (Past 12 Hours) Vital Signs Temp Pulse Resp BP Pulse Ox O2 Del Method 06/23/23 03:30 36.5 C 76 18 115/76 96 Room Air 06/22/23 23:45 36.6 C 84 18 106/73 97 Room Air 06/22/23 20:25 36.6 C 85 18 108/72 97 Room Air Resident Activity Tracking Resident Involvement: Resident Care Provided Care Provided: OB Delivery
[2023-06-23 06:37] LABS: Hematocrit (blood only) 24.2 % (37.0-47.0)
[2023-06-23] MEDS ORDERED: bisacodyL 5 MG TABEC PO SCH (20:00)
[2023-06-24] MEDS ORDERED: bisacodyL 10 MG SUPP PR PRN
== END 2023-06-23 11:20 | disposition home or self-care (01) | DRG 807 ==
LOC: 4S1 12:04 → 4E2 06-22 06:00